=== PATIENT | male | born 1985 | race American Indian/Alaskan Native ===

== ENCOUNTER 2020-05-25 17:38 | Emergency (ER) | payer OTHER ==
[2020-05-25] MEDS: LORazepam 2 MG/ML Syringe IM ONE (17:40)
[2020-05-25] MEDS: LORazepam 2 MG/ML Syringe ONE (18:01)
[2020-05-25] MEDS: Lactated Ringers 1,000 ML IV ONE (18:38)
[2020-05-25 18:50] LABS: CHLORIDE,CL 111 mEq/L (98-106); SODIUM,NA 146 mEq/L (136-145)
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
[2020-05-25 19:31] VITALS: BP 121/93; PULSE 88
== END 2020-05-25 19:05 | disposition left against medical advice (07) ==
LOC: CC.ED 17:38
DX: S06.0X9A Concussion with loss of consciousness of unspecified duration, initial encounter (principal); S00.83XA Contusion of other part of head, initial encounter; S80.812A Abrasion, left lower leg, initial encounter; F10.120 Alcohol abuse with intoxication, uncomplicated; Y04.0XXA Assault by unarmed brawl or fight, initial encounter
CPT/HCPCS: 36415; 70450; 73030-LT; 80053; 80305-QW; 80307; 81003; 85025; 96372; 99284-25; J2060; J7120